=== PATIENT | male | born 1990 | race Caucasian/White ===

== ENCOUNTER 2023-02-22 16:27 | Observation (INO) ==
[2023-02-22] MEDS ORDERED: ATIVAN IVP ONE ×2 (17:15→18:27)
--- NOTE | 2023-02-22 17:26 | ED.PDOC ---
General ED Provider: Dr. AYLA RESENDEZ MD Chief Complaint: Nausea/Vomiting Stated Complaint: CC: Alcohol withdrawal with shaking and vomiting. Vomiting the past 2 days, worse today of 5-6x of yellow liquid. No abdominal pain or diarrhea. Hx of alcoholism since age 16 on and off. Normally drinks 2 bottles of cherie or 3-4 cans of "high grade-8%" beer, 24 oz cans. Last drink last night. Can't keep anything down. Hx of DT's and pancreatitis in the past. Have family. is working and he was employed at [employer]. Time Seen by Provider: 02/22/23 17:01 Mode of Arrival: Walk-In Information Source: Patient Exam Limitations: No limitations Referred to ED by: Other (self) Nursing and Triage Documentation Reviewed and Agree: Yes Review of Systems Review Of Systems Constitutional: Reports Diaphoresis and Malaise; Denies Fever Eyes: Reports No symptoms Ears, Nose, Mouth, Throat: Reports No symptoms Respiratory: Reports No symptoms Cardiac: Reports No symptoms GI: Reports Nausea and Vomiting; Denies Abdominal pain, Blood streaked bowels or Diarrhea : Reports No symptoms Musculoskeletal: Reports No symptoms Skin: Reports No symptoms Neurological: Reports Anxiety All Other Systems: Reviewed and Negative [facility] Medical History (Updated 02/22/23 @ 22:41 by ALLISON SKELTON RN) 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, 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, unspecified (ICD-10) Gastroenteritis K52.9 - Noninfective gastroenteritis and colitis, unspecified (ICD-10) Family History FATHER Diabetes Social History (Updated 02/22/23 @ 22:41 by ALLISON SKELTON RN) Smoking and tobacco status: Smoker, status unknown Tobacco type: cigarettes Alcohol intake: current Previous attempts at quittin Substance use type: does not use Maria Luisa/yazdanism: NONE Water heater temperature set < 120 degrees: Yes What type of physical activity do you participate in?: walking Physical activity functional status: independent ambulation How many days of moderate to strenuous exercise, like a brisk walk, did you do in the last 7 days: 5 Surgical History (Updated 02/22/23 @ 22:41 by ALLISON SKELTON RN) History of musculoskeletal system surgery Z98.890 - Other specified postprocedural states (ICD-10) History of ear, nose, and throat (ENT) surgery Z98.890 - Other specified postprocedural states (ICD-10) Physical Exam Physical Exam Appearance: Reports Ill-appearing Ill-appearing: Moderate Pain Distress: None Eyes: Reports YU, EOMI and Conjunctiva clear ENT: Reports Nose normal and Oropharynx normal Neck: Supple Respiratory: Reports Airway patent, Breath sounds clear, Breath sounds equal and Respirations nonlabored; Denies Breath sounds diminished, Wheezes or Retractions Cardiovascular: Reports RRR, Pulses normal and Tachycardia GI/: Reports Soft, Nontender, No masses, Bowel sounds normal and No Organomegaly; Denies Tender Musculoskeletal: Reports Normal strength and ROM intact Skin: Reports Warm, Dry and Normal color Neurological: Reports Sensation intact and Motor intact Psychiatric: Reports Mood appropriate and Anxious Interpretation EKG Interpretation EKG Interpretation By: ED Physician Time of EKG #1: 17:25 Rate: Normal Rhythm: Sinus Ectopy: None Vilas: NL ST Segment: Normal Interpretation: Normal EKG Re-Evaluation Re-Evaluation Status: Improved Vital Signs Stable: Yes Appearance: NAD Skin: Warm and Dry Neuro: Alert and Oriented X3 Physician Notification Case Discussed Physician Notified: Cowsert Time of Notification: 18:40 Comments: Agreed to admit Critical Care Note Critical Care Note Total Critical Care Time (mins): 0 Course Course 02/22/23 17:25 02/22/23 17:25 Orders, Labs, Meds: Lab Review 02/22/23 02/22/23 17:25 19:30 WBC 8.25 RBC 4.05 L Hgb 13.3 L Hct 38.6 L MCV 95.3 H MCH 32.8 H MCHC 34.5 RDW Coeff of Richard 13.6 Plt Count 471 H Immature Gran % (Auto) 0.5 Neut % (Auto) 75.3 H Lymph % (Auto) 14.2 [place] % (Auto) 9.1 Eos % (Auto) 0.1 Baso % (Auto) 0.8 Neut # (Auto) 6.2 Lymph # (Auto) 1.2 [place] # (Auto) 0.8 Eos # (Auto) 0.0 Baso # (Auto) 0.1 Immature Gran # (Auto) 0.0 PT 12.3 H INR 1.19 APTT 24.7 Sodium 137.9 Potassium 3.80 Chloride 98.9 Carbon Dioxide 29.6 Anion Gap 13.20 BUN 10.1 Creatinine 1.01 Estimated GFR (MDRD) 86.00 BUN/Creatinine Ratio 10.00 Glucose 108.9 H Calcium 10.17 Total Bilirubin 1.10 AST 90.9 H ALT 76.0 H Alkaline Phosphatase 95.7 Total Protein 8.59 H Albumin 4.85 Globulin 3.74 Albumin/Globulin Ratio 1.29 Lipase 34.9 SARS CoV-2 RNA Rapid ARIC Negative Orders Category Date Time Status PLACE PATIENT OBSERVATION .TO MEDSURG (MONITORED BED ADMISSION 02/22/23 19:13 Active ) EKG-(ED ONLY) Stat CARDIO 02/22/23 17:15 Completed ACCUCHECK (MED/SURG, SCU) [BLOOD GLUCOSE MONITORING ( CARE 02/22/23 19:20 Active MED/SURG)] Q4HR ACTIVITY .Up With Assistance CARE 02/22/23 19:13 Active ACTIVITY .Up ad Kat CARE 02/22/23 19:11 Active CASE MANAGEMENT CONSULT ONCE CARE 02/22/23 19:16 Active [facility] WITHDRAWAL PRN CARE 02/22/23 19:14 Active CONTINUOUS PULSE OX (NURSING) PULSEOX CARE 02/22/23 19:14 Active INTAKE & OUTPUT Q8HR CARE 02/22/23 19:13 Active TELEMETRY MONITORING TELE CARE 02/22/23 19:13 Active VITAL SIGNS Q12HR CARE 02/22/23 19:11 Completed VITAL SIGNS Q4HR CARE 02/22/23 19:14 Active VITAL SIGNS Q8HR CARE 02/22/23 19:13 Completed NOTHING BY MOUTH DIETARY 02/23/23 Breakfast Ordered CBC W/ AUTO DIFF DAILY@0600 LAB 02/23/23 06:00 Ordered CBC W/ AUTO DIFF DAILY@0600 LAB 02/24/23 06:00 Ordered CBC W/ AUTO DIFF Stat LAB 02/22/23 17:25 Completed CMP [COMPREHENSIVE METABOLIC PANEL] Stat LAB 02/22/23 17:25 Completed COMPREHENSIVE METABOLIC PANEL DAILY@0600 LAB 02/23/23 06:00 Ordered COMPREHENSIVE METABOLIC PANEL DAILY@0600 LAB 02/24/23 06:00 Ordered COVID [SARS COV-2 RNA RAPID ARIC] Stat LAB 02/22/23 19:30 Completed LIPASE Stat LAB 02/22/23 17:25 Completed MAGNESIUM Timed LAB 02/23/23 06:00 Ordered PT WITH INR Stat LAB 02/22/23 17:25 Completed PTT [PARTIAL THROMBOPLASTIN TIME] Stat LAB 02/22/23 17:25 Completed 0.9 % Sodium Chloride [Saline Flush] Meds 02/22/23 19:13 Active 1 syr IVF PRN PRN Dextrose 5%-Lactated Ringers [Dextrose 5%-Lr IV Meds 02/22/23 17:30 Discontinued Solution] 1,000 ml IV 250 mls/hr Folic Acid Meds 02/23/23 09:00 Active 1 mg PO DAILY Lorazepam Inj [Ativan] Meds 02/22/23 18:27 Discontinued 1 mg IVP ONCE ONE Lorazepam Inj [Ativan] Meds 02/22/23 17:15 Discontinued 2 mg IVP ONCE ONE Lorazepam Inj [Ativan] Meds 02/22/23 19:16 Discontinued 2 mg IVP Q1-3H PRN Lorazepam Inj [Ativan] Meds 02/22/23 19:19 Active 2 mg IVP Q15MIN PRN Lorazepam [Ativan] Meds 02/22/23 19:13 Active 1 mg PO Q2HR PRN Lorazepam [Ativan] Meds 02/22/23 19:13 Active 2 mg PO Q1HR PRN Multivitamin [Multivitamin Tablet] Meds 02/23/23 09:00 Active 1 tab PO DAILY Ondansetron HCl/Pf [Zofran 4 mg/2 ml] Meds 02/22/23 18:27 Discontinued 4 mg IVP ONCE STA Ondansetron HCl/Pf [Zofran 4 mg/2 ml] Meds 02/22/23 19:13 Active 4 mg IVP Q6H PRN Pantoprazole Sodium [Protonix IV] Meds 02/23/23 09:00 Active 40 mg IVP DAILY Vitamin B-1 Inj [Thiamine] Meds 02/22/23 17:40 Discontinued 200 mg IV ONCE ONE Vitamin B-1 Inj [Thiamine] Meds 02/22/23 18:00 Discontinued 200 mg IV ONCE ONE Vitamin B-1 Inj [Thiamine] 200 mg Meds 02/22/23 17:53 Discontinued 0.9 % Sodium Chloride [Sodium Chloride] 50 ml IV ONCE Vitamin B-1 [Thiamine] Meds 02/23/23 09:00 Active 100 mg PO DAILY RESUSCITATION STATUS Routine OTHERS 02/22/23 19:11 Ordered ACTIVITIES CONSULT Routine THERAPIES 02/22/23 19:11 Ordered PT INPATIENT EVALUATION Routine THERAPIES 02/22/23 19:11 Ordered Medications Generic Name Dose Route Start Last Admin Trade Name Jenna PRN Reason Stop Dose Admin Folic Acid 1 mg 02/23/23 09:00 Folic Acid 1 Mg Tablet PO DAILY JEN Lactated Ringer's 1,000 mls @ 125 mls/hr 02/22/23 20:30 02/22/23 21:52 Lactated Ringers IV 125 mls/hr .Q8H JEN Administration Lorazepam 1 mg 02/22/23 19:13 Lorazepam 1 Mg Tablet PO Q2HR PRN Withdrawal Lorazepam 2 mg 02/22/23 19:13 02/22/23 21:51 Lorazepam 1 Mg Tablet PO 2 mg Q1HR PRN Administration Withdrawal Lorazepam 2 mg 02/22/23 19:19 Lorazepam Inj 2 Mg/Ml Disp.Syringe IVP Q15MIN PRN withdrawal Multivitamins 1 tab 02/23/23 09:00 Multivitamin 1 Tab PO DAILY JEN Ondansetron HCl 4 mg 02/22/23 19:13 02/22/23 22:58 Ondansetron Hcl/Pf 4 Mg/2 Ml Sdv IVP 4 mg Q6H PRN Administration Nausea / Vomiting Pantoprazole Sodium 40 mg 02/23/23 09:00 Pantoprazole Sodium 40 Mg Vial IVP DAILY JEN Sodium Chloride 1 syr 02/22/23 19:13 0.9% Sodium Chloride 10 Ml Disp.Syrin IVF PRN PRN Withdrawal/CIWA Score Thiamine HCl 100 mg 02/23/23 09:00 Vitamin B-1 100 Mg Tablet PO DAILY JEN Discontinued Medications Generic Name Dose Route Start Last Admin Trade Name Jenna PRN Reason Stop Dose Admin Dextrose/Lactated Ringer's 1,000 mls @ 250 mls/hr 02/22/23 17:30 02/22/23 17:59 Dextrose 5%-Lr Iv Solution IV 250 mls/hr .Q4H JEN Administration Thiamine HCl 200 mg/ Sodium 52 mls @ 100 mls/hr 02/22/23 17:53 02/22/23 17:58 Chloride IV 02/22/23 18:23 100 mls/hr ONCE ONE Administration Lorazepam 2 mg 02/22/23 17:15 02/22/23 17:38 Lorazepam Inj 2 Mg/Ml Disp.Syringe IVP 02/22/23 17:16 2 mg ONCE ONE Administration Lorazepam 1 mg 02/22/23 18:27 02/22/23 18:40 Lorazepam Inj 2 Mg/Ml Disp.Syringe IVP 02/22/23 18:28 1 mg ONCE ONE Administration Lorazepam 2 mg 02/22/23 19:16 Lorazepam Inj 2 Mg/Ml Disp.Syringe IVP Q1-3H PRN PRN alcohol withdrawal tremors Ondansetron HCl 4 mg 02/22/23 18:27 02/22/23 18:39 Ondansetron Hcl/Pf 4 Mg/2 Ml Sdv IVP 02/22/23 18:28 4 mg ONCE STA Administration Thiamine HCl 200 mg 02/22/23 18:00 Vitamin B-1 200 Mg/2 Ml Vial IV 02/22/23 18:01 ONCE ONE Thiamine HCl 200 mg 02/22/23 17:40 02/22/23 17:55 Vitamin B-1 200 Mg/2 Ml Vial IV 02/22/23 17:41 Not Given ONCE ONE Vital Signs: Temp Pulse Resp BP Pulse Ox 02/22/23 19:45 97.6 F 88 17 128/87 02/22/23 16:30 98 F 113 H 20 137/93 H 96 A lot less anxious and agitated but still some nausea. Will give another dose of Ativan and add Zofran. Discharge Plan Discharge Patient Disposition: ADMITTED INPATIENT Discharge Problem: Alcohol withdrawal syndrome Did you review [place] [facility] for ALL controlled substances?: Not Applicable ED Provider: AYLA RESENDEZ Condition: Fair Physician Progress Note: CIWA score of 20. Will give a dose of IV ativan... Feeling a lot better, resting more comfortably at 1900 hr
[2023-02-22] MEDS ORDERED: DEXTROSE 5%-LR IV SOLUTION 1,000 ML IV SCH (17:30)
[2023-02-22 17:32] LABS: BASOPHILS # (AUTO) 0.1 K/uL (0-0.2); BASOPHILS % (AUTO) 0.8 % (0.0-3.0); EOSINOPHILS % (AUTO) 0.1 % (0.0-7.0); HEMATOCRIT 38.6 % (42.0-52.0); HEMOGLOBIN 13.3 g/dl (14.0-18.0); IMMATURE GRANULOCYTE % (AUTO) 0.5 % (0.0-5.0); LYMPHOCYTES # (AUTO) 1.2 K/uL (0.60-3.4); LYMPHOCYTES % (AUTO) 14.2 (10.0-50.0); MEAN CORPUSCULAR HEMOGLOBIN 32.8 pg (27.0-31.0); MEAN CORPUSCULAR HGB CONC 34.5 (31.8-35.4); MEAN CORPUSCULAR VOLUME 95.3 fl (80.0-94.0); MONOCYTES # (AUTO) 0.8 K/uL (0.4-2.0); MONOCYTES % (AUTO) 9.1 (0-10); NEUTROPHILS # (AUTO) 6.2 K/ul (2.0-6.9); NEUTROPHILS % (AUTO) 75.3 % (42.2-75.2); PLATELET COUNT 471 10^3/uL (140-440); RDW COEFFICIENT OF VARIATION 13.6 % (11.6-14.8); RED BLOOD COUNT 4.05 10^6/ul (4.70-6.10); WHITE BLOOD COUNT 8.25 K/ul (4.2-10.2)
[2023-02-22] MEDS ORDERED: THIAMINE IV ONE ×3 (17:40→18:00)
[2023-02-22 17:45] LABS: ALBUMIN 4.85 g/dL (3.5-5.0); ALKALINE PHOSPHATASE 95.7 U/L (38-126); ASPARTATE AMINO TRANSFERASE 90.9 U/L (17-59); BILIRUBIN,TOTAL 1.1 mg/dL (0.2-1.3); BLOOD UREA NITROGEN 10.1 mg/dL (9-20); CALCIUM 10.17 mg/dL (8.4-10.2); CARBON DIOXIDE 29.6 mmol/L (22-30.0); CHLORIDE 98.9 mmol/L (98-107); CREATININE 1.01 mg/dL (0.60-1.10); GLUCOSE 108.9 mg/dL (74-106); POTASSIUM 3.8 mmol/L (3.5-5.1); SODIUM 137.9 mmol/L (134.5-145); TOTAL PROTEIN 8.59 g/dL (6.3-8.2)
[2023-02-22 17:48] LABS: PARTIAL THROMBOPLASTIN TIME 24.7 SEC (23.9-40.0); PROTHROMBIN TIME 12.3 SEC (9.3-11.0)
[2023-02-22] MEDS ORDERED: SODIUM CHLORIDE IV ONE (17:53)
[2023-02-22] MEDS ORDERED: ZOFRAN 4 MG/2 ML IVP STA (18:27)
[2023-02-22] MEDS ORDERED: ATIVAN IVP PRN ×2 (19:16→19:19)
[2023-02-22] MEDS ORDERED: INFUVITE ADULT 10 ML in D5%-1/2NS-KCL 20 MEQ/L IV SOL 1,000 ML IV SCH (19:30)
[2023-02-22 19:37] LABS: SARS COV-2 RNA RAPID NAAT NEGATIVE (NEGATIVE)
[2023-02-22] MEDS: ATIVAN PO PRN (21:51)
[2023-02-22] MEDS: LACTATED RINGERS 1,000 ML IV SCH (21:52)
[2023-02-22 22:18] VITALS: BMI 23.1
[2023-02-22] MEDS: ZOFRAN 4 MG/2 ML IVP PRN (22:58)
[2023-02-23] MEDS: ATIVAN PO PRN ×4 (03:52→20:32)
[2023-02-23] MEDS: ZOFRAN 4 MG/2 ML IVP PRN (04:30)
[2023-02-23 04:46] LABS: BASOPHILS # (AUTO) 0.1 K/uL (0-0.2); BASOPHILS % (AUTO) 0.8 % (0.0-3.0); EOSINOPHILS # (AUTO) 0.1 K/ul (0.0-0.7); HEMATOCRIT 36.1 % (42.0-52.0); IMMATURE GRANULOCYTE % (AUTO) 0.2 % (0.0-5.0); LYMPHOCYTES # (AUTO) 1.7 K/uL (0.60-3.4); LYMPHOCYTES % (AUTO) 27.9 (10.0-50.0); MEAN CORPUSCULAR HEMOGLOBIN 32.6 pg (27.0-31.0); MEAN CORPUSCULAR HGB CONC 33.2 (31.8-35.4); MEAN CORPUSCULAR VOLUME 98.1 fl (80.0-94.0); MONOCYTES # (AUTO) 0.7 K/uL (0.4-2.0); MONOCYTES % (AUTO) 10.9 (0-10); NEUTROPHILS # (AUTO) 3.6 K/ul (2.0-6.9); NEUTROPHILS % (AUTO) 59.2 % (42.2-75.2); PLATELET COUNT 420 10^3/uL (140-440); RDW COEFFICIENT OF VARIATION 13.9 % (11.6-14.8); RED BLOOD COUNT 3.68 10^6/ul (4.70-6.10); WHITE BLOOD COUNT 6.05 K/ul (4.2-10.2)
[2023-02-23 04:58] LABS: ALANINE AMINOTRANSFERASE 68.2 U/L (0-50); ALBUMIN 4.23 g/dL (3.5-5.0); ALKALINE PHOSPHATASE 79.6 U/L (38-126); ASPARTATE AMINO TRANSFERASE 86.1 U/L (17-59); BILIRUBIN,TOTAL 1.41 mg/dL (0.2-1.3); BLOOD UREA NITROGEN 6.5 mg/dL (9-20); CALCIUM 9.46 mg/dL (8.4-10.2); CARBON DIOXIDE 27.6 mmol/L (22-30.0); CHLORIDE 103.7 mmol/L (98-107); CREATININE 0.9 mg/dL (0.60-1.10); GLUCOSE 98.7 mg/dL (74-106); POTASSIUM 3.57 mmol/L (3.5-5.1); SODIUM 137.6 mmol/L (134.5-145); TOTAL PROTEIN 7.54 g/dL (6.3-8.2)
[2023-02-23] MEDS: LACTATED RINGERS 1,000 ML IV SCH ×3 (05:32→22:26)
[2023-02-23] MEDS: PROTONIX IV IVP SCH (08:49)
[2023-02-23] MEDS: FOLIC ACID PO SCH (08:49)
[2023-02-23] MEDS: MULTIVITAMIN TABLET PO SCH (08:49)
[2023-02-23] MEDS: THIAMINE PO SCH (08:49)
[2023-02-23] MEDS: LIBRIUM PO SCH ×3 (11:30→22:22)
--- NOTE | 2023-02-23 12:10 | PCM ---
Date of Service Date Seen by Provider: 02/23/23 Time Seen by Provider: 09:30 Admit Day/Time Admission Date: 02/22/23 Reason for Admission Chief Complaint: ALCOHOL WITHDRAWAL Hospital Provider Hospital Provider: [facility] History of Present Illness History of Present Illness: 32 yo male presented to the ER yesterday with alcohol withdrawal. Patient states he has abused alcohol since he was 16 years old. Has been to rehab/detox facilities multiple times, most recently in [place] in August. Released in September and began drinking again in December. States he suffers from anxiety and deo using alcohol. Reports that he drinks anywhere from 1-2 bottles of wine to 3-4 tall boy beers or whatever he can get his hands on. Has no "set amount". States that his last drink was on 02/21 and started experiencing vomiting yesterday. States that when he was discharged from detox facility before he did a valium taper but has never been prescribed medication to help with cravings. Also reports that he was prescribed effexor but didnt take it because he wasn't depressed. However, he did take the hydroxyzine he was prescribed for anxiety that he reports was mildly helpful. At this time, states he feels sweaty, a pins and needles sensation, and shaky. Last CIWA at 0900 was 13. Case Discussed With Case Discussed With: Patient's case was discussed with the ER Physicians, Dr. 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, unspecified (ICD-10) Gastroenteritis K52.9 - Noninfective gastroenteritis and colitis, unspecified (ICD-10) Surgical History History of musculoskeletal system surgery Z98.890 - Other specified postprocedural states (ICD-10) History of ear, nose, and throat (ENT) surgery Z98.890 - Other specified postprocedural states (ICD-10) Family History FATHER Diabetes Social History Smoking and tobacco status: Smoker, status unknown Tobacco type: cigarettes Alcohol intake: current Previous attempts at quittin Substance use type: does not use Maria Luisa/yazdanism: NONE Water heater temperature set < 120 degrees: Yes What type of physical activity do you participate in?: walking Physical activity functional status: independent ambulation How many days of moderate to strenuous exercise, like a brisk walk, did you do in the last 7 days: 5 Allergies Allergies Allergy/AdvReac Type Severity Reaction Status Date / Time morphine AdvReac Intermediate Vomiting Verified 02/22/23 16:42 codeine AdvReac Itching Verified 02/22/23 16:42 Current Medications Home Medications 1 [No Reported Medications] 02/22/23 [History Confirmed 02/22/23 Last Taken Unknown] Home Chlordiazepoxide HCl (Chlordiazepoxide Hcl 25 Mg Capsule) 50 mg PO Q6H [facility] Last Admin: 02/23/23 11:30 Dose: 50 mg Folic Acid (Folic Acid 1 Mg Tablet) 1 mg PO DAILY [facility] Last Admin: 02/23/23 08:49 Dose: 1 mg Lactated Ringer's (Lactated Ringers) 1,000 mls @ 125 mls/hr IV .Q8H [facility] Last Admin: 02/23/23 05:32 Dose: 125 mls/hr Lorazepam (Lorazepam 1 Mg Tablet) 1 mg PO Q2HR PRN PRN Reason: Withdrawal Lorazepam (Lorazepam 1 Mg Tablet) 2 mg PO Q1HR PRN PRN Reason: Withdrawal Last Admin: 02/23/23 08:59 Dose: 2 mg Lorazepam (Lorazepam Inj 2 Mg/Ml Disp.Syringe) 2 mg IVP Q15MIN PRN PRN Reason: withdrawal Multivitamins (Multivitamin 1 Tab) 1 tab PO DAILY [facility] Last Admin: 02/23/23 08:49 Dose: 1 tab Ondansetron HCl (Ondansetron Hcl/Pf 4 Mg/2 Ml Sdv) 4 mg IVP Q6H PRN PRN Reason: Nausea / Vomiting Last Admin: 02/23/23 04:30 Dose: 4 mg Pantoprazole Sodium (Pantoprazole Sodium 40 Mg Vial) 40 mg IVP DAILY [facility] Last Admin: 02/23/23 08:49 Dose: 40 mg Sodium Chloride (0.9% Sodium Chloride 10 Ml Disp.Syrin) 1 syr IVF PRN PRN PRN Reason: Withdrawal/CIWA Score Thiamine HCl (Vitamin B-1 100 Mg Tablet) 100 mg PO DAILY [facility] Last Admin: 02/23/23 08:49 Dose: 100 mg Discontinued Medications Dextrose/Lactated Ringer's (Dextrose 5%-Lr Iv Solution) 1,000 mls @ 250 mls/hr IV .Q4H [facility] Last Infusion: 02/22/23 22:31 Dose: Infused Thiamine HCl 200 mg/ Sodium (Chloride) 52 mls @ 100 mls/hr IV ONCE ONE Stop: 02/22/23 18:23 Last Admin: 02/22/23 17:58 Dose: 100 mls/hr Lorazepam (Lorazepam Inj 2 Mg/Ml Disp.Syringe) 2 mg IVP ONCE ONE Stop: 02/22/23 17:16 Last Admin: 02/22/23 17:38 Dose: 2 mg Lorazepam (Lorazepam Inj 2 Mg/Ml Disp.Syringe) 1 mg IVP ONCE ONE Stop: 02/22/23 18:28 Last Admin: 02/22/23 18:40 Dose: 1 mg Lorazepam (Lorazepam Inj 2 Mg/Ml Disp.Syringe) 2 mg IVP Q1-3H PRN PRN Reason: PRN alcohol withdrawal tremors Ondansetron HCl (Ondansetron Hcl/Pf 4 Mg/2 Ml Sdv) 4 mg IVP ONCE STA Stop: 02/22/23 18:28 Last Admin: 02/22/23 18:39 Dose: 4 mg Thiamine HCl (Vitamin B-1 200 Mg/2 Ml Vial) 200 mg IV ONCE ONE Stop: 02/22/23 18:01 Thiamine HCl (Vitamin B-1 200 Mg/2 Ml Vial) 200 mg IV ONCE ONE Stop: 02/22/23 17:41 Last Admin: 02/22/23 17:55 Dose: Not Given Review of Systems Constitutional: Reports Sweats Head: Reports Normocephalic Eyes: Reports No symptoms Ears: Reports No symptoms Nose: Reports No symptoms Mouth: Reports No symptoms Throat: Reports No symptoms Cardiovascular: Reports Palpitations Respiratory: Reports No symptoms Gastrointestinal: Reports Nausea, Vomiting and Diarrhea Genitourinary: Reports No Symptoms Musculoskeletal: Reports No symptoms Endocrine: Reports No symptoms Hematology: Reports No symptoms Immunology: Reports No symptoms Neurological: Reports No symptoms Psychiatric: Reports Anxiety and Sleeplessness Physical examination Most Recent Vital Signs: Most Recent Vital Signs Temperature 98.1 F 02/23/23 10:00 Temperature Source Temporal Artery Scan 02/23/23 10:00 Temperature Source Oral 02/22/23 16:30 Pulse Rate 73 02/23/23 10:00 Respiratory Rate 18 02/23/23 10:00 Blood Pressure 112/71 02/23/23 10:00 Blood Pressure Mean 84 02/23/23 10:00 Blood Pressure Left Arm 127/81 02/22/23 20:48 Blood Pressure Location Left Arm 02/23/23 10:00 Blood Pressure Position Supine 02/23/23 06:00 O2 Sat by Pulse Oximetry 98 02/23/23 10:00 Oxygen Delivery Method Room Air 02/23/23 11:45 Height 5 ft 8 in 02/22/23 20:48 Weight 152 lb 02/22/23 20:48 Telemetry Type Remote Telemetry 02/23/23 07:00 Telemetry Monitoring Continues 02/23/23 07:00 Telemetry Heart Rate 73 02/23/23 07:00 Telemetry SPO2 98 02/22/23 20:52 EKG MI Interval 0.13 02/23/23 07:00 EKG QRS Interval 0.07 02/23/23 07:00 EKG QT Interval 0.36 02/23/23 01:00 Telemetry Strip Reading SR 02/23/23 07:00 Pulse Oximetry Type Remote Telemetry 02/23/23 07:00 Pulse Oximetry Monitoring Continues 02/23/23 07:00 Appearance: Positive No Apparent Distress and Alert and Oriented x3 Skin: Positive Warm HEENT: Positive Normocephalic and PERRLA Neck: Positive Supple and Midline Trachea Chest/Lungs: Positive Symmetrical With Equal Breath Sounds, Clear to Auscultation Bilaterally and Good Air Movement all 4 Lung Guillaume Heart: Positive RRR, Pulses Normal, No S3 Auscultated and No S4 Auscultated GI/: Positive Soft, Nontender and Bowel Sounds Normal Musculoskeletal: Positive Not Examined Extremities: Positive Intact Peripheral Pulses, Stable Joints Without Laxity and Good ROM in All Joints Neurological: Positive Sensation Intact, Motor intact, Alert, Oriented and Muscle Strength 5/5 in Upper and Lower Extremities Bilaterally Psychiatric: Positive Oriented x4 Labs This Visit Labs This Visit: Labs This Visit 02/22/23 02/22/23 02/23/23 17:25 19:30 04:30 WBC 8.25 6.05 RBC 4.05 L 3.68 L Hgb 13.3 L 12.0 L Hct 38.6 L 36.1 L MCV 95.3 H 98.1 H MCH 32.8 H 32.6 H MCHC 34.5 33.2 RDW Coeff of Richard 13.6 13.9 Plt Count 471 H 420 Immature Gran % (Auto) 0.5 0.2 Neut % (Auto) 75.3 H 59.2 Lymph % (Auto) 14.2 27.9 [place] % (Auto) 9.1 10.9 H Eos % (Auto) 0.1 1.0 Baso % (Auto) 0.8 0.8 Neut # (Auto) 6.2 3.6 Lymph # (Auto) 1.2 1.7 [place] # (Auto) 0.8 0.7 Eos # (Auto) 0.0 0.1 Baso # (Auto) 0.1 0.1 Immature Gran # (Auto) 0.0 0.0 PT 12.3 H INR 1.19 APTT 24.7 Sodium 137.9 137.6 Potassium 3.80 3.57 Chloride 98.9 103.7 Carbon Dioxide 29.6 27.6 Anion Gap 13.20 9.87 BUN 10.1 6.5 L Creatinine 1.01 0.90 Estimated GFR (MDRD) 86.00 98.00 BUN/Creatinine Ratio 10.00 7.22 Glucose 108.9 H 98.7 Calcium 10.17 9.46 Magnesium 1.79 Total Bilirubin 1.10 1.41 H AST 90.9 H 86.1 H ALT 76.0 H 68.2 H Alkaline Phosphatase 95.7 79.6 Total Protein 8.59 H 7.54 Albumin 4.85 4.23 Globulin 3.74 3.31 Albumin/Globulin Ratio 1.29 1.27 Lipase 34.9 SARS CoV-2 RNA Rapid ARIC Negative Review Statement Review Statement: I have independently reviewed and interpreted the labs/EKGs/imaging that were ordered by the ER provider. I have reviewed all outside records that are available currently in our EMR including imaging/notes/labs from previous visits. Plan Plan: 1. Alcohol Withdrawal - CIWA protocol - ativan ordered to correlate, started on librium taper based on CIWA, LR@125mL/hr, MVI thiamine and folic acid daily, social service technician to provide outpatient resources 2. Anxiety - will address medications once medically stable, Behavioral Health referral 3. Tobacco use - discussed cessation, nicotine patch if patient desires DVT Prophylaxis: Up with assist Time Spent: Greater than 80 minutes spent with patient, 50% of the time spent with this patient was devoted to counseling and coordination of care. Advanced [facility] Plannin minutes spent discussing advance care planning. Smoking Cessation: 5 minutes spent discussing smoking cessation. Disposition: Admit to: Med/surg Observation Full Code Discussed Plan of Care with Dr. Nelson Henry. Medications Medication Orders: Medications Ordered Category Date Time Status 0.9 % Sodium Chloride [Saline Flush] Meds 02/22/23 19:13 Active 1 syr IVF PRN PRN Chlordiazepoxide HCl [Librium] Meds 02/23/23 11:00 Active 50 mg PO Q6H Folic Acid Meds 02/23/23 09:00 Active 1 mg PO DAILY Lorazepam Inj [Ativan] Meds 02/22/23 19:19 Active 2 mg IVP Q15MIN PRN Lorazepam [Ativan] Meds 02/22/23 19:13 Active 1 mg PO Q2HR PRN Lorazepam [Ativan] Meds 02/22/23 19:13 Active 2 mg PO Q1HR PRN Multivitamin [Multivitamin Tablet] Meds 02/23/23 09:00 Active 1 tab PO DAILY Ondansetron HCl/Pf [Zofran 4 mg/2 ml] Meds 02/22/23 19:13 Active 4 mg IVP Q6H PRN Pantoprazole Sodium [Protonix IV] Meds 02/23/23 09:00 Active 40 mg IVP DAILY Ringers Lactated Solution [Lactated Ringers] 1,000 ml Meds 02/22/23 20:30 Active IV 125 mls/hr Vitamin B-1 [Thiamine] Meds 02/23/23 09:00 Active 100 mg PO DAILY
[2023-02-24] MEDS: ATIVAN PO PRN (01:55)
[2023-02-24] MEDS: LIBRIUM PO SCH (04:27)
[2023-02-24] MEDS: LACTATED RINGERS 1,000 ML IV SCH (04:30)
[2023-02-24 05:34] LABS: BASOPHILS # (AUTO) 0.1 K/uL (0-0.2); BASOPHILS % (AUTO) 1.4 % (0.0-3.0); EOSINOPHILS # (AUTO) 0.1 K/ul (0.0-0.7); EOSINOPHILS % (AUTO) 2.2 % (0.0-7.0); HEMATOCRIT 33.9 % (42.0-52.0); IMMATURE GRANULOCYTE % (AUTO) 0.3 % (0.0-5.0); LYMPHOCYTES # (AUTO) 1.9 K/uL (0.60-3.4); LYMPHOCYTES % (AUTO) 29.6 (10.0-50.0); MEAN CORPUSCULAR HEMOGLOBIN 32.6 pg (27.0-31.0); MEAN CORPUSCULAR HGB CONC 32.4 (31.8-35.4); MEAN CORPUSCULAR VOLUME 100.6 fl (80.0-94.0); MONOCYTES # (AUTO) 0.7 K/uL (0.4-2.0); NEUTROPHILS # (AUTO) 3.7 K/ul (2.0-6.9); NEUTROPHILS % (AUTO) 56.5 % (42.2-75.2); PLATELET COUNT 361 10^3/uL (140-440); RDW COEFFICIENT OF VARIATION 13.6 % (11.6-14.8); RED BLOOD COUNT 3.37 10^6/ul (4.70-6.10); WHITE BLOOD COUNT 6.49 K/ul (4.2-10.2)
[2023-02-24 05:46] LABS: ALANINE AMINOTRANSFERASE 63.8 U/L (0-50); ALBUMIN 3.61 g/dL (3.5-5.0); ALKALINE PHOSPHATASE 84.7 U/L (38-126); ASPARTATE AMINO TRANSFERASE 78.4 U/L (17-59); BILIRUBIN,TOTAL 0.76 mg/dL (0.2-1.3); BLOOD UREA NITROGEN 7.6 mg/dL (9-20); CALCIUM 8.69 mg/dL (8.4-10.2); CARBON DIOXIDE 27.5 mmol/L (22-30.0); CHLORIDE 108.9 mmol/L (98-107); CREATININE 0.96 mg/dL (0.60-1.10); GLUCOSE 98.6 mg/dL (74-106); POTASSIUM 3.68 mmol/L (3.5-5.1); SODIUM 137.3 mmol/L (134.5-145); TOTAL PROTEIN 6.46 g/dL (6.3-8.2)
[2023-02-24 05:58] VITALS: BP 126/85; PULSE 94; RESP 20; TEMP 98.6
[2023-02-24] MEDS: PROTONIX IV IVP SCH (08:12)
[2023-02-24] MEDS: MULTIVITAMIN TABLET PO SCH (08:12)
[2023-02-24] MEDS: FOLIC ACID PO SCH (08:12)
[2023-02-24] MEDS: THIAMINE PO SCH (08:12)
[2023-02-24] MEDS ORDERED: ATARAX PO ONE (08:27)
[2023-02-24] MEDS ORDERED: LIBRIUM PO SCH (09:30)
--- NOTE | 2023-02-24 11:03 | DCSUM ---
Admission Date Admission Date: 02/22/23 Discharge Date Discharge Date: 02/24/23 Admission Diagnosis Admission Diagnosis: 1. Alcohol Withdrawal 2. Anxiety - will address medications once medically stable, Behavioral Health referral Discharge Diagnosis Discharge Diagnosis: 1. Alcohol Withdrawal - Resolved 2. Anxiety - Improving Hospital Provider Hospital Provider: YASMEEN ENNIS, [facility] Summary of History and Physical Summary of History and Physical: 32 yo male presented to the ER yesterday with alcohol withdrawal. Patient states he has abused alcohol since he was 16 years old. Has been to rehab/detox facilities multiple times, most recently in [place] in August. Released in September and began drinking again in December. States he suffers from anxiety and deo using alcohol. Reports that he drinks anywhere from 1-2 bottles of wine to 3-4 tall boy beers or whatever he can get his hands on. Has no "set amount". States that his last drink was on 02/21 and started experiencing vomiting yesterday. States that when he was discharged from detox facility before he did a valium taper but has never been prescribed medication to help with cravings. Also reports that he was prescribed effexor but didnt take it because he wasn't depressed. However, he did take the hydroxyzine he was prescribed for anxiety that he reports was mildly helpful. At this time, states he feels sweaty, a pins and needles sensation, and shaky. Last CIWA at 0900 was 13. Hospital Course Subjective: Throughout course, patient received LR@125mL/hr, multi-vitamins, and was under CIWA protocol with ativan as directed with protocol. Patient was able to tolerated PO intake throughout the day yesterday and this am. Discussed plans upon discharge. Does not wish to go to rehab due to recent admission 3 months ago. Patient was setup with PCP and behavioral health to address anxiety/mental health issues/triggers to alcohol use. Discharged on librium taper. Discussed to continue hydroxyzine as needed for anxiety. Appearance: Pleasant, No Apparent Distress and Alert HEENT: MMM and Supple CVS: No Murmur and No Rubs Abdomen: Soft, Non-Tender and No Distention Respiratory: No Dyspnea Extremities: No Edema Vital Signs: Most Recent Vital Signs Temperature 98.6 F 02/24/23 05:57 Temperature Source Oral 02/24/23 05:57 Temperature Source Oral 02/22/23 16:30 Pulse Rate 94 02/24/23 05:57 Respiratory Rate 20 02/24/23 05:57 Blood Pressure 126/85 02/24/23 05:57 Blood Pressure Mean 98 02/24/23 05:57 Blood Pressure Left Arm 127/81 02/22/23 20:48 Blood Pressure Location Left Arm 02/24/23 05:57 Blood Pressure Position Supine 02/24/23 05:57 O2 Sat by Pulse Oximetry 98 02/24/23 07:00 Oxygen Delivery Method Room Air 02/24/23 09:00 Height 5 ft 8 in 02/22/23 20:48 Weight 152 lb 02/22/23 20:48 Telemetry Type Remote Telemetry 02/24/23 07:00 Telemetry Monitoring Continues 02/24/23 07:00 Telemetry Heart Rate 62 02/24/23 07:00 Telemetry SPO2 97 02/24/23 07:00 EKG VT Interval 0.13 02/24/23 07:00 EKG QRS Interval 0.06 02/24/23 07:00 EKG QT Interval 0.36 02/23/23 01:00 Telemetry Strip Reading SR 02/24/23 07:00 Pulse Oximetry Type Remote Telemetry 02/24/23 07:00 Pulse Oximetry Monitoring Continues 02/24/23 07:00 Lab Results Last 24 Hours: 02/24/23 05:24 WBC 6.49 RBC 3.37 L Hgb 11.0 L Hct 33.9 L MCV 100.6 H MCH 32.6 H MCHC 32.4 RDW Coeff of Richard 13.6 Plt Count 361 Immature Gran % (Auto) 0.3 Neut % (Auto) 56.5 Lymph % (Auto) 29.6 [place] % (Auto) 10.0 Eos % (Auto) 2.2 Baso % (Auto) 1.4 Neut # (Auto) 3.7 Lymph # (Auto) 1.9 [place] # (Auto) 0.7 Eos # (Auto) 0.1 Baso # (Auto) 0.1 Immature Gran # (Auto) 0.0 Sodium 137.3 Potassium 3.68 Chloride 108.9 H Carbon Dioxide 27.5 Anion Gap 4.58 BUN 7.6 L Creatinine 0.96 Estimated GFR (MDRD) 91.00 BUN/Creatinine Ratio 7.91 Glucose 98.6 Calcium 8.69 Total Bilirubin 0.76 AST 78.4 H ALT 63.8 H Alkaline Phosphatase 84.7 Total Protein 6.46 Albumin 3.61 Globulin 2.85 Albumin/Globulin Ratio 1.26 Discharge Instructions Discharge Planning: Discharge Planning > 40 minutes If patient is discharged with left ventricular systolic dysfunction: NA Discharged with a beta baldo? [] If no, why not? [] Discharged with an rich/arb? [] If no, why not? [] Librium taper: Do NOT drink with this medication Today 02/24 : Take 1 by mouth every 8 hours Tomorrow 02/25: Take 1 by mouth every 12 hours 02/26: Take 1 by mouth at bedtime Continue taking hydroxazine as previously prescribed Regular diet Activity as tolerated Appointments as follows: YOU HAVE BEEN REFERRED TO [facility]LLOW UP ON February AT 2:30 WITH SHARRON BLOCK NP. SHOULD YOU HAVE ANY QUESTIONS OR NEED TO RESCHEDULE YOU CAN CONTACT THEIR OFFICE AT [phone]. YOU HAVE BEEN REFERRED TO DR. NOLASCO AT THE [facility] IN [place]. YOU HAVE AN APPOINTMENT ON April AT 3:00PM. THEY HAVE ALSO PLACED YOU ON A LIST SO THAT IF AN EARLIER APT IS AVAILABLE THEY WILL CONTACT YOU. SHOULD YOU HAVE ANY QUESTIONS OR NEED TO REACH THEM, THEIR NUMBER IS [phone]. Discharge Medications: Medications at Discharge (Home Meds & RX) chlordiazepoxide HCl 25 mg capsule See Rx Instructions .Route .COMPLEX #10 caps 02/24/23 Discharge Plan Discharge Discharge Orders: Discharge Patient (ONCE); Ordered 02/24/23 Ordered By: VANCE CHEUNG Activity Restrictions/Additional Instructions: Librium taper: Do NOT drink with this medication Today 02/24 : Take 1 by mouth every 8 hours Tomorrow 02/25: Take 1 by mouth every 12 hours 02/26: Take 1 by mouth at bedtime Continue taking hydroxazine as previously prescribed Regular diet Activity as tolerated Appointments as follows: YOU HAVE BEEN REFERRED TO [facility] A [facility] FOLLOW UP ON February AT 2:30 WITH SHARRON BLOCK NP. SHOULD YOU HAVE ANY QUESTIONS OR NEED TO RESCHEDULE YOU CAN CONTACT THEIR OFFICE AT [phone]. YOU HAVE BEEN REFERRED TO DR. NOLASCO AT THE [facility] IN [place]. YOU HAVE AN APPOINTMENT ON April AT 3:00PM. THEY HAVE ALSO PLACED YOU ON A LIST SO THAT IF AN EARLIER APT IS AVAILABLE THEY WILL CONTACT YOU. SHOULD YOU HAVE ANY QUESTIONS OR NEED TO REACH THEM, THEIR NUMBER IS [phone]. Instructions: Alcohol Withdrawal (GEN), Anxiety (GEN) Care Plan Goals: Problem: Knowledge Deficit-Alcohol Abuse Goal: Understand ETOH abuse and its treatment Instructions: Design a treatment plan Refer to community services Patient Disposition: HOME WITH FAMILY CARE Prescriptions: New chlordiazepoxide HCl 25 mg capsule See Rx Instructions .ROUTE .COMPLEX Qty: 10 0RF Rx Instructions: 10/24 50 mg orally every 8 hours 10/25 50 mg orally every 12 hours 10/26 50 mg orally at night Then as needed based on symptoms Did you review [place] [employer] for ALL controlled substances?: Yes Discussed opioids are addictive and Narcan is available by prescription or from pharmacy.: No Condition: Fair
== END 2023-02-24 09:55 | disposition home or self-care (01) ==
LOC: ED 16:27 → MEDSURG B 16:27
PROVIDERS: ADMIT Physician Assistant; ATTEND Nurse Practitioner Family
DX: F10.239 Alcohol dependence with withdrawal, unspecified; F41.9 Anxiety disorder, unspecified; Z51.81 Encounter for therapeutic drug level monitoring; Z20.822 Contact with and (suspected) exposure to COVID-19; Z79.899 Other long term (current) drug therapy; R11.2 Nausea with vomiting, unspecified; F17.210 Nicotine dependence, cigarettes, uncomplicated